=== PATIENT | female | born 1980 | race Hispanic/Latino ===

== ENCOUNTER 2025-04-29 14:24 | Emergency (ER) | payer OTHER ==
[~2025-04-29] VITALS: Ht 160 cm; Wt 65.0 kg
[2025-04-29 17:05] VITALS: BP 111/68
== END 2025-04-29 17:05 | disposition home or self-care (01) ==
LOC: ED 14:24
DX: M25.512 Pain in left shoulder (principal)
CPT/HCPCS: 73030; 73050; 99283